=== PATIENT | male | born 1950 | race African-American/Black ===

== ENCOUNTER 2020-05-10 01:30 | Observation (INO) | payer OTHER ==
[~2020-05-10] VITALS: Ht 170.2 cm; Wt 85.9 kg
--- NOTE | 2020-05-10 01:56 | PHYS DOC ---
Past Medical History Past Medical History: Hypertension Drug Use: None General Adult EDM: Chief Complaint: TRAUMA ALERT HPI: HPI: Patient is a 70 year old 70-year-old male who got out of bed and his legs cramped and he fell and hit his head. Patient had transient loss of consciousness. Patient has a mild headache and was dizzy after the fall but now feels better. Patient was initially hypotensive per EMS but has now normotensive after some IV fluids. Patient denies any recent illnesses such as nausea, vomiting, diarrhea, blood in stool, fevers, chills, cough or shortness of breath. Headache is described as mild and worse with palpation Review of Systems: Review of Systems: Constitutional: Denies fever or chills. [] Eyes: Denies change in visual acuity. [] HENT: Denies nasal congestion or sore throat. [] Respiratory: Denies cough or shortness of breath. [] Cardiovascular: Denies chest pain or edema. [] GI: Denies abdominal pain, nausea, vomiting, bloody stools or diarrhea. [] : Denies dysuria. [] Musculoskeletal: Denies back pain or joint pain. [] Integument: Denies rash. [] Neurologic: Has a mild headache but no focal weakness or sensory changes. [] Endocrine: Denies polyuria or polydipsia. [] Lymphatic: Denies swollen glands. [] Psychiatric: Denies depression or anxiety. [] Heart Score: Risk Factors: Risk Factors: DM, Current or recent (<one month) smoker, HTN, HLP, family history of CAD, obesity. Risk Scores: Score 0 - 3: 2.5% MACE over next 6 weeks - Discharge Home Score 4 - 6: 20.3% MACE over next 6 weeks - Admit for Clinical Observation Score 7 - 10: 72.7% MACE over next 6 weeks - Early Invasive Strategies Physical Exam: PE: Constitutional: Well developed, well nourished, no acute distress, non-toxic appearance. [] HENT: Normocephalic, superficial laceration to forehead bilateral external ears normal, oropharynx moist, no oral exudates, nose normal. [] Eyes: PERRLA, EOMI, conjunctiva normal, no discharge. [] Neck: Normal range of motion, no tenderness, supple, no stridor. [] Cardiovascular:Heart rate regular rhythm, no murmur [] Lungs & Thorax: Bilateral breath sounds clear to auscultation [] Abdomen: Bowel sounds normal, soft, no tenderness, no masses, no pulsatile masses. [] Skin: Warm, dry, no erythema, no rash. [] Back: No tenderness, no CVA tenderness. [] Extremities: No tenderness, no cyanosis, no clubbing, ROM intact, no edema. [] Neurologic: Alert and oriented X 3, normal motor function, normal sensory function, no focal deficits noted. [] Psychologic: Affect normal, judgement normal, mood normal. [] Current Patient Data: Labs: Laboratory Tests Test 05/10/20 01:40 05/10/20 02:55 White Blood Count 9.0 x10^3/uL Red Blood Count 4.67 x10^6/uL Hemoglobin 13.2 g/dL Hematocrit 39.5 % Mean Corpuscular Volume 85 fL Mean Corpuscular Hemoglobin 28 pg Mean Corpuscular Hemoglobin Concent 33 g/dL Red Cell Distribution Width 13.7 % Platelet Count 277 x10^3/uL Neutrophils (%) (Auto) 39 % Lymphocytes (%) (Auto) 52 % Monocytes (%) (Auto) 8 % Eosinophils (%) (Auto) 2 % Basophils (%) (Auto) 0 % Neutrophils # (Auto) 3.5 x10^3/uL Lymphocytes # (Auto) 4.6 x10^3/uL Monocytes # (Auto) 0.7 x10^3/uL Eosinophils # (Auto) 0.2 x10^3/uL Basophils # (Auto) 0.0 x10^3/uL Sodium Level 140 mmol/L Potassium Level 3.1 mmol/L Chloride Level 105 mmol/L Carbon Dioxide Level 29 mmol/L Anion Gap 6 Blood Urea Nitrogen 14 mg/dL Creatinine 1.4 mg/dL Estimated GFR (Cockcroft-Gault) 50.2 BUN/Creatinine Ratio 10 Glucose Level 139 mg/dL Calcium Level 9.0 mg/dL Magnesium Level 2.2 mg/dL Total Bilirubin 0.3 mg/dL Aspartate Amino Transf (AST/SGOT) 40 U/L Alanine Aminotransferase (ALT/SGPT) 25 U/L Alkaline Phosphatase 68 U/L Troponin I Quantitative 0.302 ng/mL Total Protein 7.9 g/dL Albumin 3.4 g/dL Albumin/Globulin Ratio 0.8 Current Medications Medications (Trade) Dose Ordered Sig/Nava Route PRN Reason Start Time Stop Time Status Last Admin Dose Admin Tetanus/ Diphtheria Toxoids (Tenivac Syringe) 0.5 ml ONCE ONCE VAX IM 05/10/20 02:30 05/10/20 02:32 DC Vital Signs: Vital Signs Date Time Temp Pulse Resp B/P (MAP) Pulse Ox O2 Delivery O2 Flow Rate FiO2 05/10/20 02:21 74 127/79 (95) 100 Room Air 05/10/20 01:39 78 14 Room Air 05/10/20 01:35 97.6 72 14 132/83 (99) 100 Room Air 97.6 EKG: EKG: [] EKG interpreted by me normal sinus rhythm with a rate of 74 normal axis normal intervals normal ST segments Radiology/Procedures: Radiology/Procedures: [][facility] [address] [place] [address] IMAGING REPORT Signed PATIENT: LIBORIO TORRES BACCOUNT: [id number] : 1950 LOCATION: ER AGE: 70 SEX: M EXAM STATUS: PRE ER ORD. PHYSICIAN: AISSATOU AREVALO MD REASON: FALL , HEAD INJURY PROCEDURE: CT HEAD WO CONTRAST CT head without contrast: Reason for examination: Fell with head injury. Comparison is made to previous study dated 09/08/2006. Axial images were obtained through the brain. No contrast was administered. Reconstruction was performed in coronal plane. Exposure: One or more of the following individualized dose reduction techniques were utilized for this examination: 1. Automated exposure control 2. Adjustment of the mA and/or kV according to patient size 3. Use of iterative reconstruction technique. Ventricular systems are symmetric and not abnormally dilated with patient's age. No midline shift is seen. No intracranial hemorrhage, mass or edema is seen. There appear to be small hypodensities consistent with lacunar infarcts in the left basal ganglia. No abnormalities of seen at the orbits. The paranasal sinuses and mastoid air cells are clear. No acute skull abnormality is seen. IMPRESSION: Small hypodensities consistent with small lacunar infarcts in the left basal ganglia. No acute intracranial abnormality evident. Electronically signed by: Rosi Mejia MD (05/10/2020 2:29 AM) [email or web address] DICTATED and SIGNED BY: ROSI MEJIA MD DATE: 05/10/20 022 [facility] [address] [place] [address] IMAGING REPORT Signed PATIENT: LIBORIO TORRES BACCOUNT: [id number] : 1950 LOCATION: ER AGE: 70 SEX: M EXAM STATUS: PRE ER ORD. PHYSICIAN: AISSATOU AREVALO MD REASON: FALL PROCEDURE: PORTABLE CHEST 1V Chest AP portable at 0153: Reason for examination: Fell The heart size is normal. Mediastinum is unremarkable. Lung srivastava are clear. No acute bony abnormalities are seen. Impression: No acute cardiopulmonary disease. Pelvis AP portable at 0150: No acute fractures seen in the pelvis or proximal femur. No abnormality seen at the sacrum or sacroiliac joints. Penile implant appears be present. IMPRESSION: No acute bony abnormality in the pelvis. Electronically signed by: Rosi Mejia MD (05/10/2020 2:57 AM) FREDY DICTATED and SIGNED BY: ROSI MEJIA MD DATE: 05/10/20 0257 Course & Med Decision Making: Course & Med Decision Making Pertinent Labs and Imaging studies reviewed. (See chart for details) [] 70-year-old male with a syncope event. Patient had a head injury and is over 65 therefore he went a head CT which was negative. Patient also has an elevated troponin in light of his syncopal event will need serial troponins in the ER and observation with a cardiac consult. On reassessment patient feels better and is resting comfortably Dragon Disclaimer: Dragon Disclaimer: This electronic medical record was generated, in whole or in part, using a voice recognition dictation system. Departure Departure Impression: Primary Impression: Syncope Additional Impressions: Head injury Elevated troponin Disposition: ADMITTED INPATIENT Admitting Physician: KAY Burciaga) Condition: STABLE AISSATOU AREVALO MD May 10, 2020 01:56
[2020-05-10 02:14] LABS: BASO % 0 % (0-3); EOS # 0.2 x10^3/uL (0.0-0.7); EOS % 2 % (0-3); HEMATOCRIT 39.5 % (39.0-53.0); HEMOGLOBIN 13.2 g/dL (13.0-17.5); LYMPH # 4.6 x10^3/uL (1.0-4.8); LYMPH % 52 % (24-48); MEAN CORPUSCULAR HEMOGLOBIN 28 pg (25-35); MEAN CORPUSCULAR HGB CONC 33 g/dL (31-37); MEAN CORPUSCULAR VOLUME 85 fL (79-100); MONO # 0.7 x10^3/uL (0.0-1.1); MONO % 8 % (0-9); NEUT # 3.5 x10^3/uL (1.8-7.7); NEUT % 39 % (31-73); PLATELET COUNT 277 x10^3/uL (140-400); RED BLOOD COUNT 4.67 x10^6/uL (4.30-5.70); RED CELL DISTRIBUTION WIDTH 13.7 % (11.5-14.5)
[2020-05-10] MEDS ORDERED: TETANUS AND DIPHTHERIA TOX/PF 0.5 ML DISP.SYRIN. VAX IM ONE (02:30)
--- NOTE | 2020-05-10 02:33 | RAD ---
CT head without contrast: Reason for examination: Fell with head injury. Comparison is made to previous study dated 09/08/2006. Axial images were obtained through the brain. No contrast was administered. Reconstruction was performed in coronal plane. Exposure: One or more of the following individualized dose reduction techniques were utilized for this examination: 1. Automated exposure control 2. Adjustment of the mA and/or kV according to patient size 3. Use of iterative reconstruction technique. Ventricular systems are symmetric and not abnormally dilated with patient's age. No midline shift is seen. No intracranial hemorrhage, mass or edema is seen. There appear to be small hypodensities consistent with lacunar infarcts in the left basal ganglia. No abnormalities of seen at the orbits. The paranasal sinuses and mastoid air cells are clear. No acute skull abnormality is seen. IMPRESSION: Small hypodensities consistent with small lacunar infarcts in the left basal ganglia. No acute intracranial abnormality evident. Electronically signed by: Ariana Chirinos MD (05/10/2020 2:29 AM) FREDY
--- NOTE | 2020-05-10 03:00 | RAD ---
Chest AP portable at 0153: Reason for examination: Fell The heart size is normal. Mediastinum is unremarkable. Lung srivastava are clear. No acute bony abnormalities are seen. Impression: No acute cardiopulmonary disease. Pelvis AP portable at 0150: No acute fractures seen in the pelvis or proximal femur. No abnormality seen at the sacrum or sacroiliac joints. Penile implant appears be present. IMPRESSION: No acute bony abnormality in the pelvis. Electronically signed by: Ariana Chirinos MD (05/10/2020 2:57 AM) FREDY
[2020-05-10 03:14] LABS: CREATININE 1.4 mg/dL (0.7-1.3); GFR 50.2; POTASSIUM 3.1 mmol/L (3.5-5.1)
[2020-05-10 03:32] LABS: ALBUMIN 3.4 g/dL (3.4-5.0); ALBUMIN/GLOBULIN RATIO 0.8 (1.0-1.7); MAGNESIUM 2.2 mg/dL (1.8-2.4); TOTAL BILIRUBIN 0.3 mg/dL (0.2-1.0); TOTAL PROTEIN 7.9 g/dL (6.4-8.2)
[2020-05-10] MEDS ORDERED: ASPIRIN CHEWABLE 81 MG TABLET. PO ONE (03:45)
[2020-05-10] MEDS ORDERED: ONDANSETRON PF 4 MG/2 ML VIAL. IV PRN (03:45)
[2020-05-10 08:10] VITALS: BP 116/81
--- NOTE | 2020-05-10 09:50 | PDOC2 ---
CARDIOLOGY CONSULT NOTE DATE OF SERVICE: DATE: 05/10/20 TIME: 09:46 CHIEF COMPLAINT: Syncope HPI: Patient is a 70-year-old man who was admitted to the hospital for evaluation of syncope. He was in his usual state of health and over the last week or so has been working excessively hard at home in his opinion. He had four PO intake yesterday and woke up at night with severe leg cramps and in the setting of severe pain he had a syncopal episode. He denies any baseline chest pain, dyspnea, orthopnea or PND. No palpitations. He is able to work and do things such as [employer] without any significant limitations. He is never had any prior cardiovascular interventions or known of any prior cardiac issues. PMHX: Hypertension sleep apnea SOCHX: Negative for alcohol, tobacco illicit drug use FAMHX: Noncontributory CURRENT MEDS: Current Medications Medications (Trade) Dose Ordered Sig/Nava Route PRN Reason Start Time Stop Time Status Last Admin Dose Admin Aspirin (Aspirin Chewable) 324 mg 1X ONCE PO 05/10/20 03:45 05/10/20 04:04 DC 05/10/20 03:59 ALLERGIES: Allergies Coded Allergies Type Severity Reaction Last Updated Verified No Known Drug Allergies 05/10/20 No ROS: Negative unless otherwise mentioned above in HPI PHYSICAL EXAM: Vital Signs/I&O: Vital Signs Date Time Temp Pulse Resp B/P (MAP) Pulse Ox O2 Delivery O2 Flow Rate FiO2 05/10/20 08:10 97.8 69 16 116/81 (93) 99 Room Air 97.8 Physical Exam: The patient appeared well nourished and normally developed. Head exam is unremarkable. No scleral icterus or corneal arcus noted. Neck is without jugular venous distension, thyromegaly, or carotid bruits. Carotid upstrokes are brisk bilaterally. Lungs are clear to auscultation and percussion. Cardiac exam reveals the PMI to be normally sized and situated. Rhythm is regular. First and second heart sounds normal. No murmurs, rubs or gallops. Abdominal exam reveals normal bowel sounds, no masses, no organomegaly and no aortic enlargement. Extremities are nonedematous and both femoral and pedal pulses are normal. Msk: No traumua Neuro: No focal deficits DIAGNOSTIC TESTING: Cardiac enzymes mildly elevated EKG unremarkable chest x-ray unremarkable Lab Laboratory Tests Test 05/10/20 01:40 05/10/20 02:55 White Blood Count 9.0 x10^3/uL (4.0-11.0) Red Blood Count 4.67 x10^6/uL (4.30-5.70) Hemoglobin 13.2 g/dL (13.0-17.5) Hematocrit 39.5 % (39.0-53.0) Mean Corpuscular Volume 85 fL (79-100) Mean Corpuscular Hemoglobin 28 pg (25-35) Mean Corpuscular Hemoglobin Concent 33 g/dL (31-37) Red Cell Distribution Width 13.7 % (11.5-14.5) Platelet Count 277 x10^3/uL (140-400) Neutrophils (%) (Auto) 39 % (31-73) Lymphocytes (%) (Auto) 52 % (24-48) H Monocytes (%) (Auto) 8 % (0-9) Eosinophils (%) (Auto) 2 % (0-3) Basophils (%) (Auto) 0 % (0-3) Neutrophils # (Auto) 3.5 x10^3/uL (1.8-7.7) Lymphocytes # (Auto) 4.6 x10^3/uL (1.0-4.8) Monocytes # (Auto) 0.7 x10^3/uL (0.0-1.1) Eosinophils # (Auto) 0.2 x10^3/uL (0.0-0.7) Basophils # (Auto) 0.0 x10^3/uL (0.0-0.2) Sodium Level 140 mmol/L (136-145) Potassium Level 3.1 mmol/L (3.5-5.1) L Chloride Level 105 mmol/L (98-107) Carbon Dioxide Level 29 mmol/L (21-32) Anion Gap 6 (6-14) Blood Urea Nitrogen 14 mg/dL (8-26) Creatinine 1.4 mg/dL (0.7-1.3) H Estimated GFR (Cockcroft-Gault) 50.2 BUN/Creatinine Ratio 10 (6-20) Glucose Level 139 mg/dL (70-99) H Calcium Level 9.0 mg/dL (8.5-10.1) Total Bilirubin 0.3 mg/dL (0.2-1.0) Aspartate Amino Transf (AST/SGOT) 40 U/L (15-37) H Alkaline Phosphatase 68 U/L (46-116) Total Protein 7.9 g/dL (6.4-8.2) Albumin 3.4 g/dL (3.4-5.0) Albumin/Globulin Ratio 0.8 (1.0-1.7) L Laboratory Tests 05/10/20 01:40 05/10/20 02:55 ASSESSMENT: 1. Syncope likely secondary to vasovagal episode in the setting of severe pain and cramping 2. Elevated troponin likely type II due to stress related issues 3. Mild renal insufficiency PLAN: 1. Plan for IV fluids, assessment of orthostatic's and if after IV fluids is orthostatic's are negative and he has no significant symptoms with ambulation okay to discharge from a cardiovascular perspective 2. Given elevated troponin, f/u in the office to ensure adequate risk factor control. Thanks JACKIE MARTINEZ MD May 10, 2020 09:50
[2020-05-10] MEDS ORDERED: IV NORMAL SALINE 1000ML BAG 1,000 ML IV ONE (10:00)
--- NOTE | 2020-05-10 10:41 | EKG ---
[facility] [address] [place] [address] Test Date: 2020-05-10 Test Time: 01:41:38 Pat Name: LIBORIO TORRES Department: Room: Gender: Emergency Medical Services Coordinator: : 1950 Requested By: AISSATOU AREVALO Order Number: [id number] Reading MD: Measurements Intervals [place] Rate: 74 P: 59 [place]: 142 QRS: 29 QRSD: 94 T: 48 QT: 394 QTc: 443 Interpretive Statements SINUS RHYTHM NO SPECIFIC ECG ABNORMALITIES RI6.01 No previous ECG available for comparison
--- NOTE | 2020-05-10 10:57 | PDOC1 ---
History and Physical Date of Admission Date of Admission DATE: 05/10/20 TIME: 10:36 Identification/Chief Complaint Chief Complaint Syncope with head injury Source Source: Patient History of Present Illness History of Present Illness Patient 70-year-old male with past medical history of hypertension, who presents with syncopal-like episode with head injury. Patient states he got out of bed yesterday when his legs felt cramped causing him to fall and hit his head. He may have lost consciousness briefly following the injury, with associated mild headache and dizziness. States his symptoms have now resolved. He does note a history of leg cramps for years, worse when he does not eat and physically exerts himself. We were asked to admit for evaluation of cardiac etiology to syncopal event. He denies any chest pain or shortness of breath. Potassium 3.1, creatinine 1.4, troponin 0 0.302, 0.328 Past Medical History Past Medical History Sleep apnea Cardiovascular: HTN Past Surgical History Past Surgical History Denies surgical history Family History Family History Denies significant family history Social History Smoke: Quit ALCOHOL: occassional Drugs: None Current Problem List Problem List Problems Medical Problems: (1) Elevated troponin Status: Acute (2) Head injury Status: Acute (3) Syncope Status: Acute Current Medications Current Medications Current Medications Tetanus/ Diphtheria Toxoids (Tenivac Syringe) 0.5 ml ONCE ONCE VAX IM ; Start 05/10/20 at 02:30; Stop 05/10/20 at 02:32; Status DC Aspirin (Aspirin Chewable) 324 mg 1X ONCE PO Last administered on 05/10/20at 03:59; Start 05/10/20 at 03:45; Stop 05/10/20 at 04:04; Status DC Ondansetron HCl (Zofran) 4 mg PRN Q8HRS PRN IV NAUSEA/VOMITING; Start 05/10/20 at 03:45; Stop 05/11/20 at 03:44 Sodium Chloride 1,000 ml @ 75 mls/hr 1X ONCE IV Last administered on 05/10/20at 09:55; Start 05/10/20 at 10:00; Stop 05/10/20 at 23:19 Allergies Allergies: Coded Allergies: No Known Drug Allergies (Unverified , 05/10/20) ROS Review of System GENERAL: No history of weight change, weakness or fevers. SKIN: No bruising, hair changes or rashes. EYES: No blurred, double or loss of vision. NOSE AND THROAT: No history of nosebleeds, hoarseness or sore throat. HEART: Syncope. Denies chest pain, denies palpitations. LUNGS: Denies cough, hemoptysis, wheezing or shortness of breath. GASTROINTESTINAL: Denies nausea, vomiting, abdominal pain. GENITOURINARY: Denies dysuria, frequency, urgency, hematuria. NEUROLOGIC: Headache, dizziness. Denies history of numbness, tingling, tremor or weakness. PSYCHIATRIC: Denies anxiety, denies depression. ENDOCRINE: No history of heat or cold intolerance, polyuria or polydipsia. EXTREMITIES: Denies muscle weakness, joint pain, pain on walking or stiffness. Physical Exam Physical Exam General: Alert, Oriented X3, Cooperative, No acute distress HEENT: PERRLA, EOMI Lungs: Clear to auscultation, Normal air movement Heart: RRR, no murmurs Cardiovascular: S1, S2 Abdomen: Normal bowel sounds, Soft, No tenderness Extremities: No clubbing, No cyanosis Skin: No rashes, No significant lesion Neuro: Normal speech, Normal tone, Sensation intact Psych/Mental Status: Mental status NL, Mood NL Vitals Vitals Vital Signs Date Time Temp Pulse Resp B/P (MAP) Pulse Ox O2 Delivery O2 Flow Rate FiO2 05/10/20 08:10 97.8 69 16 116/81 (93) 99 Room Air 97.8 Labs Labs Laboratory Tests Test 05/10/20 01:40 05/10/20 02:55 05/10/20 07:55 White Blood Count 9.0 x10^3/uL (4.0-11.0) Red Blood Count 4.67 x10^6/uL (4.30-5.70) Hemoglobin 13.2 g/dL (13.0-17.5) Hematocrit 39.5 % (39.0-53.0) Mean Corpuscular Volume 85 fL (79-100) Mean Corpuscular Hemoglobin 28 pg (25-35) Mean Corpuscular Hemoglobin Concent 33 g/dL (31-37) Red Cell Distribution Width 13.7 % (11.5-14.5) Platelet Count 277 x10^3/uL (140-400) Neutrophils (%) (Auto) 39 % (31-73) Lymphocytes (%) (Auto) 52 % (24-48) Monocytes (%) (Auto) 8 % (0-9) Eosinophils (%) (Auto) 2 % (0-3) Basophils (%) (Auto) 0 % (0-3) Neutrophils # (Auto) 3.5 x10^3/uL (1.8-7.7) Lymphocytes # (Auto) 4.6 x10^3/uL (1.0-4.8) Monocytes # (Auto) 0.7 x10^3/uL (0.0-1.1) Eosinophils # (Auto) 0.2 x10^3/uL (0.0-0.7) Basophils # (Auto) 0.0 x10^3/uL (0.0-0.2) Sodium Level 140 mmol/L (136-145) Potassium Level 3.1 mmol/L (3.5-5.1) Chloride Level 105 mmol/L (98-107) Carbon Dioxide Level 29 mmol/L (21-32) Anion Gap 6 (6-14) Blood Urea Nitrogen 14 mg/dL (8-26) Creatinine 1.4 mg/dL (0.7-1.3) Estimated GFR (Cockcroft-Gault) 50.2 BUN/Creatinine Ratio 10 (6-20) Glucose Level 139 mg/dL (70-99) Calcium Level 9.0 mg/dL (8.5-10.1) Magnesium Level 2.2 mg/dL (1.8-2.4) Total Bilirubin 0.3 mg/dL (0.2-1.0) Aspartate Amino Transf (AST/SGOT) 40 U/L (15-37) Alanine Aminotransferase (ALT/SGPT) 25 U/L (16-63) Alkaline Phosphatase 68 U/L (46-116) Troponin I Quantitative 0.302 ng/mL (0.000-0.055) 0.328 ng/mL (0.000-0.055) Total Protein 7.9 g/dL (6.4-8.2) Albumin 3.4 g/dL (3.4-5.0) Albumin/Globulin Ratio 0.8 (1.0-1.7) Laboratory Tests Test 05/10/20 01:40 05/10/20 02:55 05/10/20 07:55 White Blood Count 9.0 x10^3/uL (4.0-11.0) Red Blood Count 4.67 x10^6/uL (4.30-5.70) Hemoglobin 13.2 g/dL (13.0-17.5) Hematocrit 39.5 % (39.0-53.0) Mean Corpuscular Volume 85 fL (79-100) Mean Corpuscular Hemoglobin 28 pg (25-35) Mean Corpuscular Hemoglobin Concent 33 g/dL (31-37) Red Cell Distribution Width 13.7 % (11.5-14.5) Platelet Count 277 x10^3/uL (140-400) Neutrophils (%) (Auto) 39 % (31-73) Lymphocytes (%) (Auto) 52 % (24-48) Monocytes (%) (Auto) 8 % (0-9) Eosinophils (%) (Auto) 2 % (0-3) Basophils (%) (Auto) 0 % (0-3) Neutrophils # (Auto) 3.5 x10^3/uL (1.8-7.7) Lymphocytes # (Auto) 4.6 x10^3/uL (1.0-4.8) Monocytes # (Auto) 0.7 x10^3/uL (0.0-1.1) Eosinophils # (Auto) 0.2 x10^3/uL (0.0-0.7) Basophils # (Auto) 0.0 x10^3/uL (0.0-0.2) Sodium Level 140 mmol/L (136-145) Potassium Level 3.1 mmol/L (3.5-5.1) Chloride Level 105 mmol/L (98-107) Carbon Dioxide Level 29 mmol/L (21-32) Anion Gap 6 (6-14) Blood Urea Nitrogen 14 mg/dL (8-26) Creatinine 1.4 mg/dL (0.7-1.3) Estimated GFR (Cockcroft-Gault) 50.2 BUN/Creatinine Ratio 10 (6-20) Glucose Level 139 mg/dL (70-99) Calcium Level 9.0 mg/dL (8.5-10.1) Magnesium Level 2.2 mg/dL (1.8-2.4) Total Bilirubin 0.3 mg/dL (0.2-1.0) Aspartate Amino Transf (AST/SGOT) 40 U/L (15-37) Alanine Aminotransferase (ALT/SGPT) 25 U/L (16-63) Alkaline Phosphatase 68 U/L (46-116) Troponin I Quantitative 0.302 ng/mL (0.000-0.055) 0.328 ng/mL (0.000-0.055) Total Protein 7.9 g/dL (6.4-8.2) Albumin 3.4 g/dL (3.4-5.0) Albumin/Globulin Ratio 0.8 (1.0-1.7) Images Images CT head without contrast: Reason for examination: Fell with head injury. Comparison is made to previous study dated 09/08/2006. Axial images were obtained through the brain. No contrast was administered. Reconstruction was performed in coronal plane. Exposure: One or more of the following individualized dose reduction techniques were utilized for this examination: 1. Automated exposure control 2. Adjustment of the mA and/or kV according to patient size 3. Use of iterative reconstruction technique. Ventricular systems are symmetric and not abnormally dilated with patient's age. No midline shift is seen. No intracranial hemorrhage, mass or edema is seen. There appear to be small hypodensities consistent with lacunar infarcts in the left basal ganglia. No abnormalities of seen at the orbits. The paranasal sinuses and mastoid air cells are clear. No acute skull abnormality is seen. IMPRESSION: Small hypodensities consistent with small lacunar infarcts in the left basal ganglia. No acute intracranial abnormality evident. VTE Prophylaxis Ordered VTE Prophylaxis Devices: Yes VTE Pharmacological Prophylaxi: No Assessment/Plan Assessment/Plan Syncope ТАТЬЯНА Vasomotor nephropathy Elevated troponins Hypokalemia Plan: Consult cardiology Troponins elevated but stable, in the setting of renal insufficiency unlikely acute coronary event. IV fluids, orthostatic vitals. Replace potassium. May discharge today if remains asymptomatic FEN - Cardiac diet PPX - SCDs FULL CODE Dispo -observation for above Justifications for Admission Other Justification SEGUNDO MTZ MD May 10, 2020 10:57
[2020-05-10 11:00] VITALS: BP 118/78
[2020-05-10] MEDS: POTASSIUM CHLORIDE 10MEQ 100 ML IV SCH ×2 (11:13→12:23)
[2020-05-10 11:55] VITALS: BP_SYST 111; BP_SYST 122; BP_DIAS 78; BP_DIAS 81; BP_DIAS 85
--- NOTE | 2020-05-10 14:05 | PDOC3 ---
Discharge Summary Visit Information Date of Admission: May 10, 2020 Date of Discharge: May 10, 2020 Final Diagnosis Problems Medical Problems: (1) Elevated troponin Status: Acute (2) Head injury Status: Acute (3) Syncope Status: Acute Brief Hospital Course Allergies Allergies Coded Allergies Type Severity Reaction Last Updated Verified No Known Drug Allergies 05/10/20 No Vital Signs Vital Signs Date Time Temp Pulse Resp B/P (MAP) Pulse Ox O2 Delivery O2 Flow Rate FiO2 05/10/20 11:55 70 122/78 (93) 05/10/20 11:00 98.5 16 Room Air 98.5 05/10/20 08:10 16 Lab Results Laboratory Tests Test 05/10/20 01:40 05/10/20 02:55 05/10/20 07:55 05/10/20 11:00 White Blood Count 9.0 x10^3/uL (4.0-11.0) Red Blood Count 4.67 x10^6/uL (4.30-5.70) Hemoglobin 13.2 g/dL (13.0-17.5) Hematocrit 39.5 % (39.0-53.0) Mean Corpuscular Volume 85 fL (79-100) Mean Corpuscular Hemoglobin 28 pg (25-35) Mean Corpuscular Hemoglobin Concent 33 g/dL (31-37) Red Cell Distribution Width 13.7 % (11.5-14.5) Platelet Count 277 x10^3/uL (140-400) Neutrophils (%) (Auto) 39 % (31-73) Lymphocytes (%) (Auto) 52 % (24-48) Monocytes (%) (Auto) 8 % (0-9) Eosinophils (%) (Auto) 2 % (0-3) Basophils (%) (Auto) 0 % (0-3) Neutrophils # (Auto) 3.5 x10^3/uL (1.8-7.7) Lymphocytes # (Auto) 4.6 x10^3/uL (1.0-4.8) Monocytes # (Auto) 0.7 x10^3/uL (0.0-1.1) Eosinophils # (Auto) 0.2 x10^3/uL (0.0-0.7) Basophils # (Auto) 0.0 x10^3/uL (0.0-0.2) Sodium Level 140 mmol/L (136-145) Potassium Level 3.1 mmol/L (3.5-5.1) Chloride Level 105 mmol/L (98-107) Carbon Dioxide Level 29 mmol/L (21-32) Anion Gap 6 (6-14) Blood Urea Nitrogen 14 mg/dL (8-26) Creatinine 1.4 mg/dL (0.7-1.3) Estimated GFR (Cockcroft-Gault) 50.2 BUN/Creatinine Ratio 10 (6-20) Glucose Level 139 mg/dL (70-99) Calcium Level 9.0 mg/dL (8.5-10.1) Magnesium Level 2.2 mg/dL (1.8-2.4) Total Bilirubin 0.3 mg/dL (0.2-1.0) Aspartate Amino Transf (AST/SGOT) 40 U/L (15-37) Alanine Aminotransferase (ALT/SGPT) 25 U/L (16-63) Alkaline Phosphatase 68 U/L (46-116) Troponin I Quantitative 0.302 ng/mL (0.000-0.055) 0.328 ng/mL (0.000-0.055) 0.306 ng/mL (0.000-0.055) Total Protein 7.9 g/dL (6.4-8.2) Albumin 3.4 g/dL (3.4-5.0) Albumin/Globulin Ratio 0.8 (1.0-1.7) Laboratory Tests Test 05/10/20 01:40 05/10/20 02:55 05/10/20 07:55 05/10/20 11:00 White Blood Count 9.0 x10^3/uL (4.0-11.0) Red Blood Count 4.67 x10^6/uL (4.30-5.70) Hemoglobin 13.2 g/dL (13.0-17.5) Hematocrit 39.5 % (39.0-53.0) Mean Corpuscular Volume 85 fL (79-100) Mean Corpuscular Hemoglobin 28 pg (25-35) Mean Corpuscular Hemoglobin Concent 33 g/dL (31-37) Red Cell Distribution Width 13.7 % (11.5-14.5) Platelet Count 277 x10^3/uL (140-400) Neutrophils (%) (Auto) 39 % (31-73) Lymphocytes (%) (Auto) 52 % (24-48) Monocytes (%) (Auto) 8 % (0-9) Eosinophils (%) (Auto) 2 % (0-3) Basophils (%) (Auto) 0 % (0-3) Neutrophils # (Auto) 3.5 x10^3/uL (1.8-7.7) Lymphocytes # (Auto) 4.6 x10^3/uL (1.0-4.8) Monocytes # (Auto) 0.7 x10^3/uL (0.0-1.1) Eosinophils # (Auto) 0.2 x10^3/uL (0.0-0.7) Basophils # (Auto) 0.0 x10^3/uL (0.0-0.2) Sodium Level 140 mmol/L (136-145) Potassium Level 3.1 mmol/L (3.5-5.1) Chloride Level 105 mmol/L (98-107) Carbon Dioxide Level 29 mmol/L (21-32) Anion Gap 6 (6-14) Blood Urea Nitrogen 14 mg/dL (8-26) Creatinine 1.4 mg/dL (0.7-1.3) Estimated GFR (Cockcroft-Gault) 50.2 BUN/Creatinine Ratio 10 (6-20) Glucose Level 139 mg/dL (70-99) Calcium Level 9.0 mg/dL (8.5-10.1) Magnesium Level 2.2 mg/dL (1.8-2.4) Total Bilirubin 0.3 mg/dL (0.2-1.0) Aspartate Amino Transf (AST/SGOT) 40 U/L (15-37) Alanine Aminotransferase (ALT/SGPT) 25 U/L (16-63) Alkaline Phosphatase 68 U/L (46-116) Troponin I Quantitative 0.302 ng/mL (0.000-0.055) 0.328 ng/mL (0.000-0.055) 0.306 ng/mL (0.000-0.055) Total Protein 7.9 g/dL (6.4-8.2) Albumin 3.4 g/dL (3.4-5.0) Albumin/Globulin Ratio 0.8 (1.0-1.7) Brief Hospital Course Mr. Nj is a 70 old male who presented with syncopal-like episode, secondary to bilateral lower extremity cramps. Consults were placed to cardiology. Elevated troponins were stable, secondary to acute on chronic kidney failure. Potassium was replaced. Stable for discharge same day. Discharge Information Condition at Discharge: Improved Follow Up: Weeks Disposition/Orders: D/C to Home No Active Prescriptions or Reported Meds Justicifation of Admission Dx: Justifications for Admission: Justification of Admission Dx: Yes Comments: Syncope, rule out cardiac etiology. SEGUNDO MTZ MD May 10, 2020 14:05
[2020-05-10 15:00] VITALS: BP 118/74
--- NOTE | 2020-05-10 16:55 | NUR ---
Discharge Note: LIBOR[facility] TORRES [address] Discharge instructions and discharge home medications reviewed with Patient and a copy given. All questions have been answered and understanding verbalized. The following instructions and handouts were given: dehydration, potassium, symptoms worsening. Discontinued lines and drains: peripheral line discontinued. Patient discharged to home via ambulation accompanied by spouse.
== END 2020-05-10 17:00 | disposition home or self-care (01) ==
LOC: ER 01:30 → 2 SOUTH 05:12 → ED HOLD 05:23 → 2 SOUTH 06:05
PROVIDERS: ADMIT Family Medicine; ATTEND Family Medicine
DX: S09.8XXA Other specified injuries of head, initial encounter (principal); R55 Syncope and collapse; I10 Essential (primary) hypertension; R77.8 Other specified abnormalities of plasma proteins; W18.39XA Other fall on same level, initial encounter; Y93.89 Activity, other specified; Y92.89 Other specified places as the place of occurrence of the external cause; Y99.8 Other external cause status
CPT/HCPCS: 36415; 70450; 71045; 72170; 80053; 83735; 84484; 85025; 93005; 96360; 96361; 99285; G0378; J3480; J7030; G0379